=== PATIENT | female | born 1980 | race African-American/Black ===

== ENCOUNTER 2022-01-27 16:47 | Emergency (ER) | payer OTHER ==
[2022-01-27] MEDS ORDERED: Ketorolac Tromethamine 30 MG/ML VIAL ONE (18:46)
== END 2022-01-27 19:29 | disposition home or self-care (01) ==
LOC: CSHERS 16:47
DX: S09.90XA Unspecified injury of head, initial encounter (principal); M53.86 Other specified dorsopathies, lumbar region; V49.49XA Driver injured in collision with other motor vehicles in traffic accident, initial encounter
CPT/HCPCS: 70450; 72125; 72131; 96372; J1885